=== PATIENT | female | born 1955 | race Caucasian/White ===

== ENCOUNTER 2020-09-09 14:45 | Emergency (ER) | payer MEDICARE, OTHER ==
[~2020-09-09] VITALS: Ht 165.1 cm; Wt 70.0 kg
--- NOTE | 2020-09-09 15:06 | NUR ---
SEE TRIAGE NOTE. EKG DONE ON ARRIVAL. PT ASSISTED UP TO BSC. SHEREE DOMINGUEZ BM REPORTED TO ERP. CALL LIGHT WITHIN REACH.
--- NOTE | 2020-09-09 16:00 | NUR ---
PT WITH LARGE AMOUNT OF BM IN COMMODE. PT SLEEPING NOW. PT FOR RECHECK.
--- NOTE | 2020-09-09 16:47 | NUR ---
PT ASLEEP. PT PROVIDED DC INSTRUCTS AND PANTS FROM DONATION CLOSET. PT RELUCTANT TO LEAVE, STATES "I'M NOT READY TO GO". DC INSTRUCTS REPEATED, PT VERBALIZES UNDERSTANDING.
[2020-09-09 16:57] VITALS: BP 100/54
--- NOTE | 2020-09-09 16:58 | NUR ---
PT AMBULATORY TO DISCHARGE DESK.
== END 2020-09-09 16:59 | disposition home or self-care (01) ==
LOC: ED 16:56
DX: K59.00 Constipation, unspecified (principal); R10.84 Generalized abdominal pain; I10 Essential (primary) hypertension; F17.200 Nicotine dependence, unspecified, uncomplicated
CPT/HCPCS: 93005; 99283